=== PATIENT | male | born 1970 | race Caucasian/White ===

== ENCOUNTER 2021-11-29 18:15 | Emergency (ER) | payer OTHER, BC ==
[2021-11-29] MEDS ORDERED: Bacitracin Oint 1 GM U/D Packet TOP ONE (19:46)
== END 2021-11-29 19:55 | disposition home or self-care (01) ==
LOC: FB.ED 18:15
DX: S81.852A Open bite, left lower leg, initial encounter (principal); Z91.048 Other nonmedicinal substance allergy status; W54.0XXA Bitten by dog, initial encounter
CPT/HCPCS: 99283